=== PATIENT | female | born 1995 | race Caucasian/White ===

== ENCOUNTER 2018-09-08 17:16 | Emergency (ER) | payer MEDICAID, OTHER ==
[~2018-09-08] VITALS: Ht 162.6 cm; Wt 68.0 kg
[~2018-09-08 17:16] MED LIST: INSUPOW; LANTUS; LISI-275
[2018-09-08 17:19] VITALS: BP 123/70
== END 2018-09-08 18:00 | disposition home or self-care (01) ==
LOC: ER 17:19
DX: E11.9 Type 2 diabetes mellitus without complications (principal); Z79.4 Long term (current) use of insulin

== ENCOUNTER 2019-01-22 07:29 | Emergency (ER) | payer MEDICAID, OTHER ==
[~2019-01-22] VITALS: Ht 162.6 cm; Wt 67.1 kg
[2019-01-22] MEDS ORDERED: SODIUM CHLORIDE 0.9% 1,000 ML IVB ONE (08:10)
[2019-01-22] MEDS ORDERED: ONDANSETRON HCL 4 MG/2 ML VIAL IV ONE (08:15)
[2019-01-22 08:36] LABS: Basophils # (auto) 0 uL; Basophils % (auto) 0.2 % (0.0-2.0); Eosinophils # (auto) 0 uL; Eosinophils % (auto) 0.1 % (0.0-7.0); Lymphocytes # (auto) 0.5 uL; Lymphocytes % (auto) 2.5 % (10.0-50.0); Mean Corpuscular Hemoglobin 30.7 pg (28.0-32.0); Mean Corpuscular Hgb Conc. 33.3 g/dL (32.0-36.0); Mean Corpuscular Volume 92.3 fL (80.0-100.0); Monocytes # (auto) 1.6 uL; Monocytes % (auto) 8.4 % (0.0-12.0); Neutrophils # (auto) 17.2 uL; Neutrophils % (auto) 88.8 % (37.0-80.0); Nucleated Red Blood Cells % 0.1 %; Platelet Count (auto) 175 10^3/uL (140-450); Red Blood Cells 4.87 10^6/uL (4.0-5.20); White Blood Cell 19.4 10^3/uL (4.4-10.8)
[2019-01-22 08:55] LABS: Albumin 3.7 g/dL (3.4-5.0); Calcium 8.8 mg/dL (8.5-10.1); Potassium 3.8 mmol/L (3.5-5.1)
[2019-01-22 08:59] LABS: BUN/Creatinine Ratio 12.5; Bilirubin, Total 0.9 mg/dL (0.2-1.0); Total Protein 7.3 g/dL (6.4-8.2)
[2019-01-22] MEDS ORDERED: cefTRIAXone 1GM/50ML D5W 50 ML IV ONE (09:00)
[2019-01-22 09:42] LABS: Urine Bacteria FEW /hpf (None Seen); Urine Blood 3+ /uL (Negative); Urine Specific Gravity 1.016 (1.001-1.035); Urine WBC 1 /hpf (0 - 5)
[2019-01-22] MEDS ORDERED: SODIUM CHLORIDE 0.9% 1,000 ML IV ONE (10:00)
[2019-01-22] MEDS ORDERED: ACETAMINOPHEN 325 MG TAB PO ONE (11:15)
[2019-01-22 13:00] VITALS: BP 106/58
== END 2019-01-22 07:33 | disposition home or self-care (01) ==
LOC: ER 07:29
DX: E86.0 Dehydration (principal); J02.9 Acute pharyngitis, unspecified; E11.9 Type 2 diabetes mellitus without complications
CPT/HCPCS: 36415; 80053; 81001; 81025; 82962; 83605; 85025; 87040; 94761; 96361; 96365; 96375; 99283; J0696; J2405; J7030

== ENCOUNTER 2019-01-24 10:52 | Emergency (ER) | payer MEDICAID ==
[~2019-01-24] VITALS: Ht 162.6 cm; Wt 67.1 kg
[2019-01-24 11:22] LABS: Basophils # (auto) 0 uL; Basophils % (auto) 0.4 % (0.0-2.0); Eosinophils # (auto) 0.1 uL; Hematocrit 44.4 % (36.0-46.0); Lymphocytes # (auto) 0.2 uL; Lymphocytes % (auto) 3.1 % (10.0-50.0); Mean Corpuscular Hemoglobin 31.2 pg (28.0-32.0); Mean Corpuscular Hgb Conc. 33.8 g/dL (32.0-36.0); Mean Corpuscular Volume 92.3 fL (80.0-100.0); Monocytes # (auto) 0.4 uL; Monocytes % (auto) 6.6 % (0.0-12.0); Neutrophils # (auto) 5.9 uL; Neutrophils % (auto) 88.9 % (37.0-80.0); Platelet Count (auto) 187 10^3/uL (140-450); Red Blood Cells 4.81 10^6/uL (4.0-5.20); Red Cell Distribution Width 13.9 % (11.8-14.3); White Blood Cell 6.6 10^3/uL (4.4-10.8)
[2019-01-24 11:49] LABS: Albumin 3.3 g/dL (3.4-5.0); Calcium 8.2 mg/dL (8.5-10.1); Potassium 3.9 mmol/L (3.5-5.1)
[2019-01-24] MEDS ORDERED: SODIUM CHLORIDE 0.9% 1,000 ML IVB ONE (11:52)
[2019-01-24 11:54] LABS: Bilirubin, Total 0.5 mg/dL (0.2-1.0)
[2019-01-24] MEDS ORDERED: PROMETHAZINE HCL 25 MG/ML 1ML IV PRN (12:00)
[2019-01-24 12:34] LABS: Magnesium 1.8 mg/dL (1.6-2.6)
[2019-01-24] MEDS ORDERED: ACETAMINOPHEN 325 MG TAB PO ONE (14:45)
[2019-01-24 16:23] LABS: Urine Bacteria NONE SEEN /hpf (None Seen); Urine Blood Negative /uL (Negative); Urine Mucus FEW (None Seen); Urine WBC 2 /hpf (0 - 5)
[2019-01-24 17:13] VITALS: BP 106/59
== END 2019-01-24 18:01 | disposition home or self-care (01) ==
LOC: ER 10:52
DX: R11.2 Nausea with vomiting, unspecified (principal); R53.1 Weakness; E11.9 Type 2 diabetes mellitus without complications; Z79.4 Long term (current) use of insulin
CPT/HCPCS: 36415; 80053; 81001; 82150; 82962; 83690; 83735; 84702; 85025; 94761; 96361; 96374; 99283; J2550; J7030

== ENCOUNTER 2019-08-07 12:49 | Emergency (ER) | payer SELFPAY ==
[~2019-08-07] VITALS: Ht 162.6 cm; Wt 68.0 kg
[2019-08-07 13:04] VITALS: BP 134/75
[2019-08-07] MEDS ORDERED: cefTRIAXone SOD 1,000 MG VL IM ONE (13:30)
[2019-08-07] MEDS ORDERED: LIDOCAINE 1% HCL (LOCAL ANESTH.) INJ 20ML MDV ONE (13:35)
== END 2019-08-07 14:22 | disposition home or self-care (01) ==
LOC: ER 12:49
DX: S01.411A Laceration without foreign body of right cheek and temporomandibular area, initial encounter (principal); S61.300A Unspecified open wound of right index finger with damage to nail, initial encounter; W54.0XXA Bitten by dog, initial encounter; Y93.89 Activity, other specified; Y92.89 Other specified places as the place of occurrence of the external cause; Y99.8 Other external cause status
CPT/HCPCS: 96372; 99283; J0696; J2001